=== PATIENT | male | born 1990 | race Caucasian/White ===

== ENCOUNTER 2021-04-28 00:54 | Emergency (ER) | payer OTHER ==
[~2021-04-28] VITALS: Ht 180.3 cm; Wt 88.5 kg
[~2021-04-28 00:54] MED LIST: ACET325; AZIT250 PO; CRUTCH4 USE; CYCL10 PO; FEXPSEER; HYDACE5 PO; IBUP200; IBUP600 PO; IBUP800; IBUP800 PO; ISOT10; Keflex500 MG PO; Kristalose20 GM PO; Norco 5-325 Ta1 EACH PO; ONDA4 PO; OXYACE5T PO; PROM25 PO; RXHYDACE PO
[2021-04-28] MEDS ORDERED: NARCAN4 M1 (03:22)
== END 2021-04-28 03:56 | disposition home or self-care (01) ==
LOC: ER 00:54
DX: T40.1X1A Poisoning by heroin, accidental (unintentional), initial encounter (principal); F17.220 Nicotine dependence, chewing tobacco, uncomplicated; Z91.018 Allergy to other foods; Z88.8 Allergy status to other drugs, medicaments and biological substances; Z79.899 Other long term (current) drug therapy
CPT/HCPCS: 93005; 93010; 99284-25